=== PATIENT | male | born 1995 | race Caucasian/White ===

== ENCOUNTER → 2019-11-30 14:39 | Outpatient (CLI) | payer OTHER, SELFPAY ==
[2019-11-30 14:16] VITALS: BMI 33.0
--- NOTE | 2019-11-30 14:40 | RAD_ITS ---
STUDY: X-RAY - RIGHT SHOULDER REASON FOR EXAM: Unable to move shoulder, injury today. TECHNIQUE: 4 view(s) of the shoulder. COMPARISON: None. FINDINGS: Normal glenohumeral articulation. Normal acromioclavicular joint. Normal acromion. Normal humeral head and visualized proximal humerus. The soft tissue structures are unremarkable. Normal visualized pulmonary apex. RAD/Shoulder min 2 Views IMPRESSION: Normal x-ray examination of the right shoulder. Electronically Signed: Chetan Teixeira MD at 15:38 EST Tel , Service support ,
== END ==
PROVIDERS: Family Provider Pediatrics; Referring Provider Physician Assistant Surgical; Visit Provider Physician Assistant Surgical
DX: S46.911A Strain of unspecified muscle, fascia and tendon at shoulder and upper arm level, right arm, initial encounter (principal)
CPT/HCPCS: 73030

== ENCOUNTER → 2019-12-03 12:55 | Outpatient (CLI) | payer OTHER, SELFPAY ==
[2019-12-03 11:39] VITALS: BMI 33.0
--- NOTE | 2019-12-03 12:59 | MRI_ITS ---
HISTORY: 1c/o pain anteriorly after feeling a pop on EXAMINATION: MR right Shoulder W/O Contrast TECHNIQUE: Multiplanar and multisequence MR images of the right shoulder. IV Contrast dosage and agent: None. 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 The unfused acromial areas result in an isolated bony ossicle which is not displaced but is potentially unstable and symptomatic. The unfused areas show a mildly irregular bony contour in keeping with synchondroses rather than fracture. No findings of posttraumatic AC joint separation. Rotator cuff: The rotator cuff is well developed and intact. No evidence of cuff tear or tendinosis. No bursitis or suspicious fluid collections within the subacromial/subdeltoid bursa. Articular cartilage, labrum, and glenohumeral joint. Articular cartilage is preserved. No joint effusion or labral abnormality. Intact long head of the biceps tendon which is normal in position within the bicipital groove. Bones: As above, developmental os acromiale. Residual red marrow, not unusual for age. No fracture seen. MRI/Upper Ext Joint Only(Routine) IMPRESSION: 1. 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 2. Otherwise negative exam. Intact rotator cuff without findings of bursitis or tendinosis. 3. No fracture seen. at 0848 Reported and signed by: Todd Silva MD Electronically Signed: Todd Silva, at 8:47 EST Tel , Service support ,
== END ==
PROVIDERS: Referring Provider Physician Assistant Surgical; Visit Provider Physician Assistant Surgical
DX: S46.911A Strain of unspecified muscle, fascia and tendon at shoulder and upper arm level, right arm, initial encounter (principal)
CPT/HCPCS: 73221

== ENCOUNTER 2019-12-28 07:00 | Outpatient (RCR) | payer OTHER, SELFPAY ==
[2019-12-04 15:16] VITALS: BMI 33.0
--- NOTE | 2019-12-11 08:44 | HP.PTEVAL_ITS ---
Patient's Visit Information RADHA WILL is a 24 year old M referred to Physical Therapy by HANNAH Modi with a diagnosis of Right Shoulder Strain. Date of Evaluation: 12/11/19 Physical Therapist: Samantha Brandt DPT - Visit Plan Frequency: 3x /Week Duration: 4 Weeks Plan: Focus on scapular s/s, right shoulder ROM and postural awareness - Subjective Findings: Right shoulder popped his shoulder out when unloading a trailer- he was able to pop it back in. First incidence of popping out but has had problems with his shoulder in high school. Was pulling stuff out of truck and it just went out. [facility] to [facility] and they did x-ray which showed no fractures. Pain in the shoulder is currently a 4-5/10. Pain is located in the anterior shoulder and with no radiating pain. Right hand dominate. No blurred vision, MENDEZ, dizziness. Worst: 5/10 Agg: sleeping on it. Eases: nothing Best: 2/10. Describes the pain as grabbing- he has pain while just sitting. Was in a sling for a week. 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 Currently off work- plans to speak to [facility] today to get released to go back. Sleep: wakes him up- sleeps on side. PMHx: HTN, gout Meds: HTN med that starts with an A - Objective Posture:FH, RS- given verbal and tactile cues patient is able to obtain fair posture but does not maintain. Mild guarding of the right UE. Gait: no deviation noted- good arm swing and trunk rotation. Palpatoin: tender along upper trap, tip of the acromion, bicpital groove and deltoid in the right shoulder. ROM: Cervical: WNL, Elbow/Wrist: WNL, Shoulder: WFL in all planes but reports pain with abduction and flexion- painful arc above 90 degrees. Strength: Cervical Isometric: 4+/5, Shoulder: flexion: 4-/5 with pain, abd: 4- /5 with pain, Extn: 4-/5 with pain, IR/Er: 4/5 with slight pain. Elbow flexion: 4/5 with pain, Elbow extn: 4-/5 with significant pain, Wrist: 5/5, Dipping Machine Operator:Left: 80,80,100 Right: 40, 40, 35, Scap s/s: poor. Special Test: Impingment: positive, Empty Can: positive Lift off: negative, Apprehension: positive. Sensation: WNL - Goals Goal 1:: Patient will be I with HEP and progression Goal Time Frame: 4-6 Weeks Goal 2:: Patient will demo full AROM of the right shoulder with 0/10 pain Goal Time Frame: 4-6 Weeks Goal 3:: Patient will maintain proper posture t/o tx session to demo increased scap s/s Goal Time Frame: 4-6 Weeks Goal 4:: Patient will demo 4+/5 strength without pain in the right shoulder - Rehabilitation Potential Physical Therapy Diagnosis: Patient presents with hypomobility- he has decreased pain free ROM, strength and muscular endurance leading to poor posture and increased pain with ADL's. Rehabilitation Potential: Fair - Anticipated Interventions Patient/Client Instruction: Educate patient on: Benefits of Fitness Program Therapeutic Exercise to Include: Strength training, Endurance training, Body mechanics, Postural training, Flexibilty training, Passive ROM, Active ROM, Dynamic Lumbar Stabilization, Scapular Strength/Stabilization For the Purpose of:: To improve muscle performance and motor function TENS: Yes Cryotherapy (ice pack, ice massage): Yes Thermo therapy (hot pack): Yes Ultrasound (thermal/non thermal): Yes Thank you for the opportunity to evaluate your patient. For Medicare and Medicare HMO plans, please review the plan of care and approve it. It will need to be FAXED BACK to us at [phone] for Medicare purposes. For Medicare only, by signing this I certify the plan of care. Please let me know if there are questions or concerns regarding this plan of care. Physician Signature: Date:__
--- NOTE | 2019-12-28 07:23 | HP.PTDCSUM_ITS ---
HP - PT D/C Summary It has been my pleasure to treat RADHA WILL under orders from HANNAH Modi, for the diagnosis of Right Shoulder Strain for a total of 7 visit(s). Discharge Date: Please see the following information for a summary of their discharge status. - Subjective Subjective: Patient reports its a little bit better. Threw straps over yesterday and it was 3/10- pain went away after he was finished. Sleep is not disturbed. He is 70% better but is unsure of how good he really is since he has been stuck in a semi. - Pain Right Shoulder Pain Intensity (Out of 10): 0 - Overall Improvement % Improvement: 70 - Objective Objective/Function: Posture:FH, RS- given verbal and tactile cues patient is able to obtain fair posture but does not maintain. Gait: no deviation noted- good arm swing and trunk rotation. Palpatoin:not tender to touch ROM: Cervical: WNL, Elbow/Wrist: WNL, Shoulder: WFL in all planes but reports pain with abduction and flexion. Strength: Cervical Isometric: 5/5, Shoulder: 5/5 throghout in neutral Elbow 5/5, Wrist: 5/5, Straightening Press Operator:Left: 80,80,100 Right: 90,90,100, Scap s/s: fair plus. Special Test: Impingment: positive, Empty Can: positive Lift off: negative, Apprehension: positive. Sensation: WNL - Goals Goal 1:: Patient will be I with HEP and progression Goal Progress: Goal Met Goal 2:: Patient will demo full AROM of the right shoulder with 0/10 pain Goal Progress: Goal Met Goal 3:: Patient will maintain proper posture t/o tx session to demo increased scap s/s Goal Progress: Progressing Goal 4:: Patient will demo 4+/5 strength without pain in the right shoulder Goal Progress: Goal Met - Plan Plan: Discharge to I HEP - D/C Information If there are questions or concerns regarding this patient's physical therapy, please feel free to call me at [phone]. Thank you for the referral of this patient. Sincerely, Samantha Brandt DPT
== END 2019-12-28 13:40 | disposition home or self-care (01) ==
LOC: PT 07:00
PROVIDERS: Visit Provider Physician Assistant
DX: S46.911D Strain of unspecified muscle, fascia and tendon at shoulder and upper arm level, right arm, subsequent encounter (principal)
CPT/HCPCS: 97110; 97161; 97164

== ENCOUNTER 2023-03-28 20:46 | Emergency (ER) | payer SELFPAY ==
[2023-03-28 20:47] VITALS: BP 141/99; PULSE 103; RESP 16; TEMP 36.1; O2SAT 97; BMI 34.2
--- NOTE | 2023-03-28 22:16 | RAD_ITS ---
STUDY: X-RAY - LEFT ANKLE REASON FOR EXAM: Male, 27 years old. pain TECHNIQUE: 3 view(s) of the ankle. COMPARISON: None. FINDINGS: Normal visualized distal tibia and fibula. Normal medial and lateral malleoli. Normal tibiotalar articulation and ankle mortise. Normal visualized talus and calcaneus. The visualized subtalar, talonavicular, calcaneocuboid and tarsal articulations are normal. There is no demonstrated fracture. The soft tissue structures are unremarkable. RAD/Ankle min 3 Views IMPRESSION: Normal x-ray examination of the ankle. Electronically Signed: Moses Bedoya MD at 22:34 EDT ,
--- NOTE | 2023-03-28 22:16 | RAD_ITS ---
STUDY: X-RAY - LEFT FOOT CLINICAL: Male, 27 years old. pain TECHNIQUE: 3 view(s) of the foot. COMPARISON: None. FINDINGS: Normal talus, calcaneus, and tarsal bones. Normal visualized subtalar, talonavicular, calcaneocuboid, tarsal and tarsometatarsal articulations. Normal metatarsi. Normal metatarsophalangeal joint of the great toe. Normal tibial and fibular sesamoid bones. Normal interphalangeal joint of the great toe. Normal phalanges of the great toe. Normal second through fifth metatarsophalangeal joints. Normal interphalangeal joints and phalanges of the lesser toes. The soft tissue structures are unremarkable. There is no demonstrated fracture. RAD/Foot min 3 Views IMPRESSION: Normal x-ray examination of the foot. Electronically Signed: Moses Bedoya MD at 22:35 EDT ,
--- NOTE | 2023-03-28 22:27 | US_ITS ---
EXAM: US DUPLEX LEFT LOWER EXTREMITY VEINS CLINICAL INDICATION: LT ANKLE PAIN REDNESS SWELLING X 2 MONTHS TECHNIQUE: Real-time duplex ultrasound scan of the left lower extremity veins integrating B-mode two-dimensional vascular structure, Doppler spectral analysis, color flow Doppler imaging and compression. COMPARISON: No relevant prior studies available. FINDINGS: DEEP VEINS: Unremarkable. No DVT in the visualized common femoral, femoral, proximal deep femoral or popliteal veins. The veins demonstrate normal color flow, are normally compressible, with normal phasic flow and/or augmentation response. SUPERFICIAL VEINS: Unremarkable. No thrombus in the visualized great saphenous vein. SOFT TISSUES: No acute findings. No popliteal cyst. US/Venous Duplex Imag/Limited/Uni IMPRESSION: Normal left lower extremity duplex venous ultrasound. Electronically Signed: Luis Carnes MD at 23:05 EDT ,
--- NOTE | 2023-03-28 23:44 | EX.ED.DYSGE1 ---
HPI History of Present Illness Chief Complaint: Lower Extremity Injury Narrative Narrative: Patient is a 27-year-old male who states he has a past medical history of gout and hypertension. He states that over the past 2 months he has been having intermittent redness swelling and pain to his left foot/ankle. He states that symptoms all began after he went out with his friend after the loss of a family member and did not watch his diet or alcohol intake. He denies any direct trauma he denies any fevers or chills but states that he is unsure if this is a gout flare as he been having recurrent issues for so long and therefore decided to come to the hospital for evaluation. Patient denies any history of immunosuppression or diabetes. 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 Luis Phillips, DO) Gout HTN (hypertension) Home Medications BP med PO 11/30/19 [History Last Taken Unknown] gout med PO 11/30/19 [History Last Taken Unknown] oxycodone-acetaminophen 5 mg-325 mg tablet (Percocet) 1 tab PO Q6H PRN pain 3 days #12 tabs 03/28/23 [Rx Last Taken Unknown] prednisone 10 mg tablet 10 mg PO DAILY #63 tabs 03/28/23 [Rx Last Taken Unknown] Allergy/AdvReac Type Severity Reaction Status Date / Time No Known Allergies Allergy Unverified 03/28/23 20:47 Social History (Updated 05/28/20 @ 06:33 by Sb YOUNG, PA) Smoking Status: Never smoker alcohol intake: never ROS ROS ED Constitutional Constitutional ED: Denies chills or fever(s) ENT ENT ED: Denies sore throat Cardiovascular Cardiovascular: Denies chest pain Respiratory/Chest Respiratory/Chest: Denies cough or dyspnea Gastrointestinal Gastrointestinal: Denies abdominal pain, diarrhea, nausea or vomiting Genitourinary Genitourinary ED: Denies dysuria Musculoskeletal Musculoskeletal: Reports other Details: Positive left foot pain Integumentary Reports other Details: Positive redness left foot ; Denies rash Neurologic Neurologic: Denies headache(s) Hematologic/Lymphatic Hematologic/Lymphatic: Denies easy bleeding or easy bruising EXAM Physical Exam Const Vital Signs: 03/28/23 20:47 Temperature 97 F L Temperature Source Temporal Pulse Rate 103 H Respiratory Rate 16 Blood Pressure 141/99 H Blood Pressure Mean 113 Pulse Ox 97 Oxygen Delivery Method Room Air Positive well nourished and well developed General Appearance ED: well developed HEENT HEENT Narrative: Normocephalic atraumatic Eyes PERRL and EOMs intact bilaterally General Eye ED: Negative for scleral icterus Neck supple Resp normal respiratory effort and clear to auscultation bilaterally Cardio regular rate and regular rhythm Extremity Extremity Narrative: Left lower extremity is neurovascularly intact. Patient has soft tissue swelling of the left ankle and dorsum of the left foot. There is asymmetric erythema and warmth that extends from the fourth/fifth metatarsal back towards the ankle. There is no obvious drainable fluid collection or abscess formation. No crepitance palpated. No obvious ligamentous or tendon injury noted. Negative Homans' sign bilaterally Remainder the exam is normal Neuro oriented x3 and CN's II-XII intact bilaterally Sensorium / Orientation: alert Psych mental status grossly normal Skin Skin Narrative: Soft tissue changes to the left foot as documented above MDM MDM MDM Narrative Medical decision making narrative: Patient presented to the ER afebrile but hypertensive but does admit to history of of high blood pressure. He has had recurrent redness and swelling to his left foot off and on for the past few months and differential diagnosis includes recurrent gout cellulitis abscess osteomyelitis avascular necrosis fracture or retained foreign body. Without fever or signs of sepsis I doubt this is an infectious process based on the prolonged timeframe that patient reports he has had symptoms. Therefore do not feel there is need for blood work but will check x-rays for signs of bony breakdown retained foreign body or fracture. X-rays revealed no acute findings. As the patient does drive all day I did elect to perform a venous duplex checking for possible DVT which was also negative. Therefore this time I do feel this is most likely recurrent gout and patient will be placed on high dose tapered prednisone to help resolve his symptoms but is otherwise safe for discharge History & Record Review Discussion w/independent historian: Patient Radiography Diagnostic Testing: Clinical Impression(s) from Imaging Studies Ankle X-Ray 03/28/23 22:16 IMPRESSION: Normal x-ray examination of the ankle. Electronically Signed: Moses Bedoya MD at 22:34 EDT , Foot X-Ray 03/28/23 22:16 IMPRESSION: Normal x-ray examination of the foot. Electronically Signed: Moses Bedoya MD at 22:35 EDT , Venous Duplex 03/28/23 22:27 IMPRESSION: Normal left lower extremity duplex venous ultrasound. Electronically Signed: Luis Carnes MD at 23:05 EDT , X-ray of the left foot and left ankle as interpreted by the emergency medicine physician reveals no acute fracture dislocation foreign body or signs of osteomyelitis Discharge Plan Triage Chief Complaint: Lower Extremity Injury ED Provider: Luis Phillips Dx/Rx/DC Orders Clinical Impression: Gout, Hypertension Instructions: ED Gout, ED Gout Diet Prescriptions: New oxycodone-acetaminophen [Percocet] 5-325 mg tablet 1 tab PO Q6H PRN (Reason: pain) 3 Days Qty: 12 0RF prednisone 10 mg tablet 10 mg PO DAILY Qty: 63 0RF Rx Instructions: 60 mg p.o. daily ?3 days, 50 mg p.o. daily ?3 days, 40 mg p.o. daily ?3 days, 30 mg p.o. daily ?3 days, 20 mg p.o. daily ?3 days, 10 mg p.o. daily ?3 days. No Action BP med PO gout med PO Primary Care Provider: Care Physician,No Primary Referrals: Lee Hodgson DPM [Med Staff - Active Staff] - Care Physician,No Primary [Primary Care Provider] - Disposition Disposition: Home, Self Care Discharge Date/Time: 03/29/23 00:13
[2023-03-28] MEDS: predniSONE 20 MG Tablet 60 MG PO (23:59)
== END 2023-03-29 00:13 | disposition home or self-care (01) ==
PROVIDERS: Emergency Provider Emergency Medicine; Visit Provider Emergency Medicine
DX: M10.9 Gout, unspecified (principal); I10 Essential (primary) hypertension; Z79.52 Long term (current) use of systemic steroids
CPT/HCPCS: 73610; 73630; 93971; 99283